=== PATIENT | male | born 1970 | race Caucasian/White ===

== ENCOUNTER 2021-06-20 17:48 | Emergency (ER) | payer SELFPAY ==
[2021-06-20 17:56] VITALS: BP 146/90; PULSE 81; RESP 20; TEMP 36.6; O2SAT 96
--- NOTE | 2021-06-20 18:03 | ED.SKABFB ---
HPI - Skin/Abscess/Foreign Bdy General Chief complaint: Skin/Abscess/Foreign Body Stated complaint: rash with knot under skin belly button Time Seen by Provider: 06/20/21 18:20 Source: patient and RN notes reviewed Mode of arrival: ambulatory Limitations: no limitations History of Present Illness HPI narrative: 50-year-old male presents with concern for 3-day history of red nests on his abdomen. Reports the center of his abdomen/under his bellybutton as a small tender hard area. Reports he had a small amount of crusty drainage on 2 different instances in his bellybutton. Reports the red area on the skin of his abdomen is warm and slightly tender. He denies fever, body aches, chills, sweats. Denies abdominal pain, nausea, vomiting, diarrhea MD complaint: abscess/boil Related Data Allergies Allergy/AdvReac Type Severity Reaction Status Date / Time No Known Allergies Allergy Verified 06/20/21 18:03 Review of Systems Review of Systems: CONSTITUTIONAL: Denies malaise, chills, sweats, or fever. CARDIOVASCULAR: Denies chest pain, palpitations, or edema. RESPIRATORY: Denies cough or dyspnea. GASTROINTESTINAL: Denies abdominal pain, nausea, vomiting, diarrhea, bloody, or mucous stools. SKIN: Reports red, warm, tender skin of the abdomen, center knot that is tender MUSCULOSKELETAL: Denies myalgia. All systems reviewed & are unremarkable except as noted in HPI and below PMFSH Comments At time of signature, agree with nursing past medical, surgical, social and family history. There is no relevant family history pertinent to the presenting complaint Exam Narrative: GENERAL: Well-appearing, well-nourished, and in no acute distress. HEAD: Normocephalic, atraumatic. EYES: PERRLA, conjunctivae clear ENT: Mucous membranes moist. NECK: Supple. No lymphadenopathy CHEST: Clear to auscultation. No respiratory distress. HEART: Regular rate and rhythm. SKIN: Warm, dry. Approximately 30 cm x 20 cm patch of erythema, edema, induration, tenderness with a palpable 4 cm diameter nodule below the umbilicus in a an obese abdomen NEURO: Alert and oriented x3. PSYCH: Normal mood and affect Course Course Emergency Course: Patient is aware of diagnosis, understands and agrees to treatment plan. Anticipatory guidance given. Patient agrees to follow-up as directed and is aware of reasons to seek care at the emergency department. Portions of this record may have been created with voice recognition software Vital Signs Vital signs: Vital Signs Temperature 97.8 F 06/20/21 17:56 Pulse Rate 81 06/20/21 17:56 Respiratory Rate 20 06/20/21 17:56 Blood Pressure 146/90 H 06/20/21 17:56 Pulse Oximetry 96 06/20/21 17:56 Temperature 97.8 F 06/20/21 17:56 Pulse Rate 81 06/20/21 17:56 Respiratory Rate 20 06/20/21 17:56 Blood Pressure 146/90 H 06/20/21 17:56 Pulse Oximetry 96 06/20/21 17:56 Reviewed. Procedures Abscess I/D abdomen: Date of Incision: 06/20/21 Time of Incision: 18:33 Local Anesthetic: lidocaine 1% Amount of anesthesia used (mL): 3 Technique: incised with #11 blade Amount of fluid expressed (mL): 4 Irrigation: No Packing used?: none I&D Results: Pus and Blood MDM - Skin/Abscess/Foreign Bdy MDM Narrative Medical decision making narrative: Exam findings show no acute concerns or changes; patient is non-toxic appearing and is in no distress. Patient is appropriate for outpatient treatment and follow-up. Differential Diagnosis Differential diagnosis: Likely abscess of skin or subcutaneous tissue, cellulitis, impetigo and contact dermatitis Critical Care Time Critical Care Time Critical Care Time: No Discharge Plan Discharge Clinical Impression: Abscess of skin or subcutaneous tissue Qualifiers: Site of cutaneous abscess: trunk Site of cutaneous abscess of trunk: abdominal wall Qualified Code(s): L02.211 - Cutaneous abscess of abdominal wall Ce
== END 2021-06-20 18:50 | disposition home or self-care (01) ==
PROVIDERS: Emergency Provider Nurse Practitioner
DX: L02.211 Cutaneous abscess of abdominal wall (principal); L03.311 Cellulitis of abdominal wall
CPT/HCPCS: 10060; 87070; 87205; 99213; G0463

== ENCOUNTER 2022-12-26 17:59 | Emergency (ER) | payer BC, SELFPAY ==
[2022-12-26 18:19] VITALS: BP 157/81; PULSE 98; RESP 16; TEMP 37.2; O2SAT 94
--- NOTE | 2022-12-26 20:25 | ED.URI ---
HPI - URI/Sore Throat General Chief Complaint: Upper Respiratory Infection Stated Complaint: Sore Throat Time Seen by Provider: 12/26/22 20:15 Source: patient, RN notes reviewed and old records reviewed Mode of arrival: ambulatory Limitations: no limitations History of Present Illness HPI Narrative: 52-year-old male who presents to [facility] had sore throat, sniffles,sinus congestion, cough since yesterday has been taking DayQuil and halls cough drops. Patient reports that he has had positive exposure to strep throat at work. Patient reports that he has had low grade temp, states that throat is painful and is difficult to swallow. Patient has no tachypnea or acute dyspnea SAO2 94% on room air. MD elicited complaint: sore throat, rhinorrhea, nasal congestion and other (Difficulty swallowing) Onset (ago): day(s) (2) Pain scale (0-10): 5 Able to tolerate fluids by mouth: Yes Exacerbating factors: swallowing Treatments prior to arrival: other (DayQuil, cough drops) Related Data Allergies Allergy/AdvReac Type Severity Reaction Status Date / Time No Known Allergies Allergy Verified 12/26/22 18:53 Review of Systems Review of Systems: CONSTITUTIONAL:Reports malaise, chills, sweats, or fever. EYES: Denies visual changes, redness, or discharge. ENT: Reports rhinorrhea, congestion, no sinus pain,no otalgia positive sore throat. CARDIOVASCULAR: Denies chest pain, palpitations, or edema. RESPIRATORY: Reports cough.? Denies dyspnea. GASTROINTESTINAL: Denies abdominal pain, nausea, vomiting, diarrhea SKIN: Denies rash or itching. MUSCULOSKELETAL: Denies myalgia. NEUROLOGIC: Denies headache. All systems reviewed & are unremarkable except as noted in HPI and below [facility] Past Medical History Medical History (Updated 12/30/22 @ 10:26 by Octavia Bashir NP) Plantar fasciitis Surgical History Surgical History (Updated 12/30/22 @ 10:26 by Octavia Bashir NP) H/O: knee surgery History of hemorrhoidectomy Social History Social History (Updated 12/30/22 @ 10:27 by Octavia Bashir NP) Smoking status: Former smoker Additional smoking assessment comments: Quit 2011 Alcohol intake: current Alcohol use details: rare social Substance use type: does not use Living arrangements: with family Gender identity (if verbalized by the patient): Male Comments At time of signature, agree with nursing past medical, surgical, social and family history. There is no relevant family history pertinent to the presenting complaint Exam Narrative: GENERAL: Well-appearing, well-nourished, and in no acute distress. HEAD: Normocephalic EYES: PERRLA, conjunctivae clear ENT: Nares clear, turbinates edematous and erythematous, clear discharge. Mucous membranes moist. TM pearly castillo with dull light reflex bilaterally; no tragal tenderness. Oropharynx erythematous without lesions. Tonsils red swollen enlarged and without exudate,reports difficulty swallowing, no drooling, no hoarseness, no trismus, uvula red midline.some post nasal drainage. NECK: Supple. lymphadenopathy CHEST: Clear to auscultation, breath sounds equal. No wheezing, rhonchi, rales, or stridor. No respiratory distress, speaks in full sentences SAO2 94% on room air. HEART: Regular rate and rhythm. No murmur heard. SKIN: Warm, dry, no rash. NEURO: Alert and oriented x3. PSYCH: Normal mood and affect Course Course Emergency Course: Patient is aware of diagnosis, understands and agrees to treatment plan.? Anticipatory guidance given.? Patient agrees to follow-up as directed and is aware of reasons to seek care at the emergency department. Portions of this record may have been created with voice recognition software Level of Care: Express Care Visit Vital Signs Vital signs: Vital Signs Temperature 37.2 C 12/26/22 18:19 Pulse Rate 98 12/26/22 18:19 Respiratory Rate 16 12/26/22 18:19 Blood Pressure 157/81 H 12/26/22 18:19 Pul
== END 2022-12-26 20:40 | disposition home or self-care (01) ==
PROVIDERS: Emergency Provider Registered Nurse; PCP Physician Assistant
DX: J02.0 Streptococcal pharyngitis (principal); Z87.891 Personal history of nicotine dependence
CPT/HCPCS: 87880; 99213; G0463

== ENCOUNTER 2023-05-30 08:13 | Emergency (ER) | payer BC, SELFPAY ==
[2023-05-30 08:20] VITALS: BP 139/94; PULSE 73; RESP 20; TEMP 36.6; O2SAT 96
[2023-05-30 08:30] VITALS: BP 139/94; PULSE 73; RESP 20; TEMP 36.6; O2SAT 96
--- NOTE | 2023-05-30 08:34 | ED.EYEPROB ---
HPI - Eye Problem General Chief complaint: Eye Problems Stated complaint: Left Eye Problem Time Seen by Provider: 05/30/23 08:34 Source: patient Mode of arrival: ambulatory Limitations: no limitations History of Present Illness HPI Narrative: 52-year-old male presented for complaint of left eye irritation since yesterday. Endorses burning sensation, clear drainage, redness to the eye, itching and pressure. States he woke with the eye crusted shut. Endorses blurry vision at times which clears with removing drainage. Denies injury or FB. States he was seen at an urgent care yesterday, told he does not have a corneal abrasion, treated with ketoralac for allergic conjunctivitis. Denies improvement in symptoms. MD chief complaint: eye pain Related Data Home Medications Medication Instructions Recorded Confirmed cetirizine 10 mg tablet (Zyrtec) 10 mg PO DAILY 05/30/23 05/30/23 ketorolac 0.5 % eye drops drp 05/30/23 Allergies Allergy/AdvReac Type Severity Reaction Status Date / Time No Known Allergies Allergy Verified 05/30/23 08:24 Review of Systems Review of Systems: CONSTITUTIONAL: Denies body aches, fever, chills EYES:Endorses redness drainage and pain to left eye; denies FB sensation, photophobia, visual changes ENT: Denies rhinorrhea, congestion, sore throat, or otalgia. CARDIOVASCULAR: Denies chest pain, palpitations RESPIRATORY: Denies cough or dyspnea. GASTROINTESTINAL: Denies abdominal pain, nausea, vomiting, or diarrhea. SKIN: Denies rash, itching, or wounds. MUSCULOSKELETAL: Denies back pain, joint pain, or myalgia. NEUROLOGIC: Denies headache, numbness, tingling, or weakness. All systems reviewed & are unremarkable except as noted in HPI and below PMFSH Past Medical History Medical History Plantar fasciitis Surgical History Surgical History H/O: knee surgery History of hemorrhoidectomy Social History Social History Smoking status: Former smoker Additional smoking assessment comments: Quit 2011 Alcohol intake: current Alcohol use details: rare social Substance use type: does not use Living arrangements: with family Gender identity (if verbalized by the patient): Male Comments At time of signature, I have reviewed and agree with nursing past medical, surgical, social and family history unless otherwise noted. Please see nursing chart for further information. There is no relevant family history pertinent to the presenting complaint Exam Narrative: GENERAL: Well-appearing HEAD: Normocephalic, atraumatic. EYES: left conjunctival injection, scant amount yellow drainage; No eye lid swelling. PERRLA, EOMI. Lid eversion shows no foreign body ENT: Mucous membranes pink and moist. No rhinorrhea. TMs normal bilaterally. Throat normal. Uvula midline. CHEST: Clear to auscultation. HEART: Regular rate and rhythm. ABDOMEN: Soft, nontender, nondistended SKIN: Warm, dry, no rash. Normal skin turgor. NEURO: No focal deficits. Alert and oriented x3 PSYCH: Normal affect. Course Course Emergency Course: Patient is aware of diagnosis, understands and agrees to treatment plan. Anticipatory guidance given. Patient agrees to follow-up as directed and is aware of reasons to seek care at the emergency department. Portions of this record may have been created with voice recognition software Level of Care: Express Care Visit Vital Signs Vital signs: Vital Signs Temperature 97.8 F 05/30/23 08:20 Pulse Rate 73 05/30/23 08:20 Respiratory Rate 05/30/23 08:20 Blood Pressure 139/94 H 05/30/23 08:20 Pulse Oximetry 96 05/30/23 08:20 Oxygen Delivery Room Air 05/30/23 08:20 Temperature 97.8 F 05/30/23 08:30 Pulse Rate 73 05/30/23 08:30 Respiratory Rate 05/30/23 08:30 Bloo
== END 2023-05-30 08:47 | disposition home or self-care (01) ==
PROVIDERS: Emergency Provider Nurse Practitioner Family; PCP Physician Assistant
DX: H10.9 Unspecified conjunctivitis (principal); Z87.891 Personal history of nicotine dependence
CPT/HCPCS: 99213; G0463

== ENCOUNTER 2023-06-03 15:18 | Emergency (ER) | payer BC, SELFPAY ==
[2023-06-03 15:22] VITALS: BP 138/85; PULSE 86; RESP 14; TEMP 36.6; O2SAT 96
--- NOTE | 2023-06-03 15:55 | ED.EYEPROB ---
HPI - Eye Problem General Chief complaint: Eye Problems Stated complaint: Left Eye Problem Time Seen by Provider: 06/03/23 15:55 Source: patient Mode of arrival: ambulatory Limitations: no limitations History of Present Illness HPI Narrative: 52-year-old male presents with redness, swelling and drainage from left eye. Patient was seen here approximately 1 week ago and given antibiotic eyedrops. Reports that he left them at work 2 days ago. Has not used antibiotic eyedrops for 2 days. States that it was not helping anyway. No redness and drainage worse. No vision changes. All systems reviewed and negative except as noted above. Related Data Home Medications Medication Instructions Recorded Confirmed cetirizine 10 mg tablet (Zyrtec) 10 mg PO DAILY 05/30/23 06/03/23 ketorolac 0.5 % eye drops 1 drp DIRECTED 05/30/23 06/03/23 Allergies Allergy/AdvReac Type Severity Reaction Status Date / Time No Known Allergies Allergy Verified 06/03/23 15:56 Review of Systems Review of Systems: CONSTITUTIONAL: Denies fever, chills, or sweats. EYES: Denies visual changes. Reports redness, discharge. ENT: Denies rhinorrhea, congestion, sore throat, or otalgia. CARDIOVASCULAR: Denies chest pain, palpitations, or edema. RESPIRATORY: Denies cough or dyspnea. GASTROINTESTINAL: Denies abdominal pain, nausea, vomiting, or diarrhea. GENITOURINARY: Denies dysuria or hematuria. SKIN: Denies rash or itching. MUSCULOSKELETAL: Denies back pain, joint pain, or myalgia. NEUROLOGIC: Denies headache, numbness, or weakness. PSYCHIATRIC: Denies anxiety or depression. All other systems reviewed are negative, except as documented in HPI. [facility] Past Medical History Medical History Plantar fasciitis Surgical History Surgical History H/O: knee surgery History of hemorrhoidectomy Social History Social History Smoking status: Former smoker Additional smoking assessment comments: Quit 2011 Alcohol intake: current Alcohol use details: rare social Substance use type: does not use Living arrangements: with family Gender identity (if verbalized by the patient): Male Comments At time of signature, agree with nursing past medical, surgical, social and family history. There is no relevant family history pertinent to the presenting complaint. Exam Narrative: GENERAL: This is a well-nourished, well-developed patient, in no apparent distress. HEAD: normocephalic, atraumatic. EYES: PERRL. Left sclera conjunctiva erythematous, injected. PERRLA drainage from left eye. vision is grossly intact. EARS: External ears normal NOSE: External nose normal THROAT: Mucous membranes moist, posterior pharynx clear. NECK: Neck supple, non-tender without lymphadenopathy, masses or thyromegaly. CARDIOVASCULAR: Regular rate and rhythm without murmurs, gallops, or rubs. RESPIRATORY: Clear to auscultation. Breath sounds equal bilaterally. No wheezes, rales, or rhonchi. SKIN: warm, Dry, intact with no suspicious lesions or rash, good texture and turgor. NEURO: awake, alert, and oriented to person, place and time. There were no obvious focal neurologic abnormalities. EXTREMITIES: No joint tenderness, effusion, or edema noted. Course Course Level of Care: Express Care Visit Vital Signs Vital signs: Vital Signs Temperature 36.6 C 06/03/23 15:22 Pulse Rate 86 06/03/23 15:22 Respiratory Rate 14 06/03/23 15:22 Blood Pressure 138/85 06/03/23 15:22 Pulse Oximetry 96 06/03/23 15:22 Oxygen Delivery Room Air 06/03/23 15:22 Temperature 36.6 C 06/03/23 15:22 Pulse Rate 86 06/03/23 15:22 Respiratory Rate 14 06/03/23 15:22 Blood Pressure 138/85 06/03/23 15:22 Pulse Oximetry 96 06/03/23 15:22 Oxygen Delivery Room Air 06/03/23 15:22 R
== END 2023-06-03 16:13 | disposition home or self-care (01) ==
PROVIDERS: Emergency Provider Nurse Practitioner Family; PCP Physician Assistant
DX: H10.32 Unspecified acute conjunctivitis, left eye (principal); Z87.891 Personal history of nicotine dependence
CPT/HCPCS: 99213; G0463